=== PATIENT | male | born 1960 | race Caucasian/White ===

== ENCOUNTER 2019-10-28 13:38 | Emergency (ER) | payer BC ==
--- NOTE | 2019-10-28 14:48 | UC ---
Hypertension HPI - HPI Summary HPI Summary: 59 yo diabetic with hypertension, began lisinopril about 6 months ago, but states that he has typically continued to run blood pressures in the 140 systolic range. He has not had a BP check in a couple of months, but took his blood pressure this morning when he became aware of head pressure. He found his blood pressure to be 180/110, and because he could not see his primary physician , came here for an assessment. He has no vision changes (had a normal dilated eye exam one week ago), dizziness , chest pain, shortness of breath, leg swelling. He has not had a recent illness , no fever, has not used decongestants or supplements. Typically he takes his 10mg lisinopril dose at night, but he took an additional 10mg about an hour ago due to the elevated blood pressure reading. . He reports normal renal function and is voiding normally. He is fit and works out regularly without shortness of breath or chest pain. He uses ibuprofen about 5 days per week due to shoulder pain. Reviewed labs from June 2019, showing normal electrolytes, normal eGFR, urine negative for MA. - History of Current Complaint Chief Complaint: UCGeneralIllness Stated Complaint: BLOOD PRESSURE CONCERN Time Seen by Provider: 10/28/19 14:39 Hx Obtained From: Patient Onset/Duration: Sudden Onset, Lasting Hours Aggravating Factor(s): Other Alleviating Factor(s): Nothing Associated Signs And Symptoms: Positive: Headaches. Negative: Chest Pain, Vision Changes, Recent Stress, Numbness, Tingling, Weakness, Dizziness, SOB, Swelling Current Medications: ACEI - Risk Factors Cardiac Risk Factors: Hypertension, Diabetes - Allergies/Home Medications Allergies/Adverse Reactions: Allergies Allergy/AdvReac Type Severity Reaction Status Date / Time shellfish derived Allergy Nausea And Verified 10/28/19 13:55 Vomiting Home Medications: Home Medications lisinopriL [Lisinopril] 10 mg PO DAILY 10/28/19 [History Confirmed 10/28/19] metFORMIN* [Glucophage 1000 MG TAB *] 1,000 mg PO 0800,1700 10/28/19 [History Confirmed 10/28/19] PMH/Surg Hx/FS Hx/Imm Hx Previously Healthy: Yes Endocrine History: Diabetes - Surgical History Surgical History: Yes Surgery Procedure, Year, and Place: knee surgeries - Family History Known Family History: Positive: Cardiac Disease - mother has had a fib, Hypertension Negative: Diabetes, Renal Disease - Social History Occupation: Employed Full-time Lives: With Family Alcohol Use: Occasionally Substance Use Type: None Smoking Status (MU): Never Smoked Tobacco Have You Smoked in the Last Year: No Review of Systems All Other Systems Reviewed And Are Negative: Yes Constitutional: Positive: Negative Skin: Positive: Negative Eyes: Positive: Negative. Negative: Blurred Vision, Diplopia, Photophobia ENT: Positive: Negative Respiratory: Positive: Negative Cardiovascular: Negative: Palpitations, Chest Pain Gastrointestinal: Positive: Negative Genitourinary: Positive: Negative Motor: Positive: Negative Neurovascular: Positive: Negative Musculoskeletal: Positive: Negative Neurological: Positive: Headache Psychological: Positive: Negative Is Patient Immunocompromised?: No Physical Exam Triage Information Reviewed: Yes Appearance: Well-Appearing, No Pain Distress, Well-Nourished Vital Signs: Initial Vital Signs Temp 97.8 F 10/28/19 13:52 Pulse 77 10/28/19 13:52 Resp 18 10/28/19 13:52 BP 210/100 10/28/19 13:52 Pulse Ox 99 10/28/19 13:52 Eye Exam: Normal, Other - ANDREI, no photophobia, no flame hemorrhages. Eyes: Positive: Conjunctiva Clear ENT: Positive: Pharynx normal, TMs normal Neck exam: Other - No carotid bruit Neck: Positive: Supple, Nontender, No Lymphadenopathy Respiratory: Positive: Lungs clear, Normal breath sounds, No respiratory distress Cardiovascular: Positive: RRR, No Murmur Musculoskeletal Exam: Normal Neurological Exam: Normal, Other - CNII-XII normal. Normal gait. No pronator drift. Psychological Exam: Normal - Mildly anxious Skin Exam: Normal Diagnostics - EKG Cardiac Rate: NL Cardiac Rhythm: Sinus: Normal Ectopy: None ST Segment: Normal Re-Evaluation - Re-Evaluation First Eval Re-Evaluation Time: 15:10 Change: Improved Comment: Blood pressure decreased to 146/96 Hypertension Course/Dx - Course Course Of Treatment: 59 yo man with diabetes and hypertension, with recognition of accelerated hypertension today with onset of dull headache, but no other concerning findings. EKG is normal. No symptoms to suggest TIA, stroke or changes in renal function. Blood pressure reading after 1 hour was 146/96, reflecting additional lisinopril dosing. Will increase lisinopril to 20mg daily with follow up by Dr. Shelby early next week. Labs done today. - Differential Dx/Diagnosis Differential Diagnosis/HQI PQRI: Hypertension, Hypertensive Urgency Provider Diagnosis: Accelerated hypertension Discharge ED - Sign-Out/Discharge Documenting (check all that apply): Patient Departure All imaging exams completed and their final reports reviewed: No Studies - Discharge Plan Condition: Stable Disposition: HOME Patient Education Materials: Hypertension (ED) Referrals: Ricardo Shelby MD [Primary Care Provider] - Additional Instructions: Follow up with Dr. Shelby early next week. Please increase lisinopril to 20mg daily, taking 10mg again tonight, then increasing to 20mg daily until you see Dr. Shelby in follow up. Please do a blood pressure check once daily, suggest mid morning, not post eating or post exertion. Take a series of 3 readings over several minutes and discard the first. Lab work will be done and you will receive a call if there are any abnormals. Return to the ER for evaluation if you have increasing headache, dizziness, chest pain or rapid heart rate, balance changes or weakness. - Billing Disposition and Condition Condition: STABLE Disposition: Home
[2019-10-28 15:18] VITALS: BP 146/96
[2019-10-29 11:43] LABS: ABS Eosinophils 0.5 10^3/ul (0-0.6); ABS Lymphocytes 2.9 10^3/ul (1.0-4.8); ABS Monocytes 0.5 10^3/ul (0-0.8); ABS Neutrophils 3.4 10^3/ul (1.5-7.7); Eosinophil % 6.5 %; Hematocrit 43 % (42-52); Hemoglobin 15.5 g/dL (14.0-18.0); Lymphocyte % 39.2 %; Mean Corpuscular HGB Conc 36 g/dL (31-36); Mean Corpuscular Hemoglobin 32 pg (27-31); Mean Corpuscular Volume 91 fL (80-94); Mean Platelet Volume 8.4 fL (7.4-10.4); Platelet Count 269 10^3/uL (150-450); Red Blood Count 4.78 10^6 /uL (4.18-5.48); Red Cell Distribution Width 12 % (10-15); White Blood Count 7.3 10^3/uL (3.5-10.8)
[2019-10-29 11:48] LABS: Albumin 4.5 g/dL (3.2-5.2); Calcium 10.1 mg/dL (8.6-10.3); Potassium 4.5 mmol/L (3.5-5.0); Total Bilirubin 0.3 mg/dL (0.2-1.0)
[2019-10-29 11:54] LABS: BUN/Creatinine Ratio 17.3 (8-20); EGFR African American 118.8 (>60); EGFR Non-African American 98.2 (>60); Globulin 2.3 g/dL (2-4); Total Protein 6.8 g/dL (6.4-8.9)
[2019-10-29 12:23] LABS: TSH (Thyroid Stimulating Horm) 1.81 mcIU/mL (0.34-5.60)
== END 2019-10-28 15:47 | disposition home or self-care (01) ==
LOC: UCCORT 13:38
DX: I10 Essential (primary) hypertension (principal); E11.9 Type 2 diabetes mellitus without complications; R51 Headache; Z91.013 Allergy to seafood
CPT/HCPCS: 36415; 80053; 84443; 85025; 93005; 99212; G0463